=== PATIENT | male | born 1950 | race Caucasian/White ===

== ENCOUNTER 2018-11-14 21:26 | Emergency (ER) | payer OTHER | END 2018-11-14 23:38 | disposition home or self-care (01) | LOC: JER 21:26 ==

== ENCOUNTER 2023-04-01 11:28 | Emergency (ER) | payer OTHER ==
[2023-04-01 12:12] VITALS: BP 159/75; PULSE 79; RESP 17; TEMP 97.6; BMI 23.3
[2023-04-01] MEDS ORDERED: ACETAMINOPHEN 500 MG TABLET (FP) PO ONE (13:19)
[2023-04-01] MEDS ORDERED: LIDOCAINE 4% PATCH TP ONE ×2 (13:19→13:32)
[2023-04-01] MEDS ORDERED: ACETAMINOPHEN 500 MG TABLET (FP) ONE (13:32)
[2023-04-01 14:02] LABS: URINE APPEARANCE CLEAR; URINE BILIRUBIN NEGATIVE (NEGATIVE); URINE COLOR YELLOW; URINE GLUCOSE (UA) NEGATIVE (NEGATIVE); URINE KETONE NEGATIVE (NEGATIVE); URINE LEUK ESTERASE NEGATIVE (NEGATIVE); URINE NITRITE NEGATIVE (NEGATIVE); URINE PROTEIN NEGATIVE (NEGATIVE); URINE UROBILINOGEN 0.2 mg/dL (0.2-1.0)
[2023-04-01] MEDS ORDERED: LIDOCAINE PATCH REMOVAL MC SCH (22:00)
== END 2023-04-01 15:14 | disposition home or self-care (01) ==
LOC: JERFT 11:28 → JER 11:28 → JERFT 15:14
DX: M54.50 Low back pain, unspecified (principal)
CPT/HCPCS: 72100-TC-FY; 81003; 87086; 99284-25